=== PATIENT | female | born 1985 | race Caucasian/White ===

== ENCOUNTER 2018-05-20 15:07 | Outpatient (CLI) | payer BC ==
--- NOTE | 2018-05-20 17:19 | CT ---
CT ABDOMEN AND PELVIS WITHOUT CONTRAST STONE PROTOCOL: HISTORY: N20.0, nephrolithiasis. COMPARISON: Abdomen radiograph from 04/24/2018. FINDINGS: The lung bases are clear. No pericardial effusion. There is a nonobstructing calculus, inferior pole, left renal collecting system, measuring 3 x 3 mm. There is also a punctate, 1 x 2 mm, nonobstructing calculus, interpolar left renal collecting system . There is marked abnormal thickening of the urothelium of the renal pelvis with chronic dilatation of the right collecting system. No obstructive right-sided renal calculi are appreciated. No urinary bladder calculi. The appendix is felt to be visualized and is normal. No dilated loops of large or small bowel. Nonc ontrast evaluation of the spleen, pancreas, adrenal glands, and liver are all unremarkable. The aort oiliac contour is nonaneurysmal. No acute osseous abnormality. IMPRESSION: 1. Nonobstructing calculus, inferior left renal collecting system, measuring 3 x 3 mm. 2. A 1 x 2 mm, nonobstructing left interpolar renal calculus. 3. Marked dilatation, likely chronic, of the right renal pelvises, as well as the renal calices, wit h thinning of the cortex, as well as urothelial thickening of the renal pelvis. This could be sequel a of chronic reflux disease or ureteropelvic junction obstruction. A CT urogram is recommended. POS: [facility]
== END 2018-05-20 15:08 | disposition home or self-care (01) ==
LOC: SCSCT 15:07
PROVIDERS: ATTEND Urology
DX: N20.0 Calculus of kidney (principal)
CPT/HCPCS: 74176

== ENCOUNTER 2023-10-30 13:45 | Outpatient (CLI) | payer BC ==
[2023-10-30] MEDS ORDERED: Iopamidol 100 ML FS ONE (14:16)
== END 2023-10-30 13:46 | disposition home or self-care (01) ==
LOC: RAD 13:45
PROVIDERS: ATTEND Obstetrics & Gynecology Reproductive Endocrinology
DX: Z31.41 Encounter for fertility testing (principal); N85.00 Endometrial hyperplasia, unspecified
CPT/HCPCS: 58340; 74740; Q9967